=== PATIENT | female | born 1985 | race Caucasian/White ===

== ENCOUNTER 2019-05-09 11:01 | Emergency (ER) | payer BC ==
[~2019-05-09] VITALS: Ht 177.8 cm; Wt 59.1 kg
[~2019-05-09 11:01] MED LIST: ALEVE 220MG220 MG PO; BUSPAR DIVIDOSE15 MG; DEPAKOTE ER 50500 MG; DESYREL 100MG100 MG; INDERAL 10MG10 MG; INDERAL 10MG10 MG PO; KLONOPIN 0.5MG0.5 MG PO; KLONOPIN WAFE0.25 MG PO; LATUDA60 MG PO; PROAIR HFA0.09 MG/AC; REGLAN 10MG10 MG/TAB; VISTARIL50 MG; WELLBUTRIN SR150 M1; ZOFRAN 4MG T4 MG/TAB PO
[2019-05-09 11:09] VITALS: TEMP 98.8
[2019-05-09 12:16] LABS: COLLECTION METHOD CLEAN CATCH
[2019-05-09 12:21] LABS: BASO # 0.1 (0.0-0.2); BASO % 1.3 % (0.0-2.0); EOS # 0.2 (0.0-0.7); GRAN # 2.9 (1.4-6.5); GRAN % 63.6 % (42.2-75.2); HEMATOCRIT 38.8 % (37.0-47.0); HEMOGLOBIN 12.7 g/dl (12.5-16.0); LYMPH # 1.1 (1.2-3.4); LYMPH % 23.8 % (20.0-51.0); MEAN CELL VOLUME 91 fl (80.0-100.0); MEAN CORPUSCULAR HEMOGLOBIN 30 pg (27.0-31.0); MEAN CORPUSCULAR HGB CONC 33 g/dl (33.0-37.0); MEAN PLATELET VOLUME 10.8 fl (7.4-10.4); MONO # 0.3 (0.1-0.6); MONO % 7.1 % (1.7-9.3); PLATELET COUNT 206 K/mm3 (130-400); RED BLOOD COUNT 4.26 M/mm3 (4.10-5.30); REDCELL DISTRIBUTION WIDTH-CV 12.6 % (11.5-14.5)
[2019-05-09 12:30] LABS: MUCOUS Present /lpf; PH 5 (5-8); SQUAMOUS EPITHELIAL 0-2 /hpf; URINE APPEARANCE Clear; URINE BACTERIA Rare /hpf; URINE BILIRUBIN Negative (NEGATIVE); URINE BLOOD 1+ (NEGATIVE); URINE COLOR Amber; URINE GLUCOSE Negative (NEGATIVE); URINE KETONE Negative (NEGATIVE); URINE LEUKOCYTE ESTERASE Negative (NEGATIVE); URINE NITRATE Positive (NEGATIVE); URINE PROTEIN(semi-quant) Negative (NEGATIVE); URINE RBC 0-2 /hpf; URINE UROBILINOGEN >=4.0 mg/dL (NEGATIVE)
[2019-05-09 12:33] LABS: ALBUMIN 4.2 gm/dL (3.5-5.0); BILIRUBIN,TOTAL 0.7 mg/dL (0.0-1.0); CALCIUM 9.1 mg/dL (8.4-10.2); CREATININE, serum 0.87 (0.52-1.25); POTASSIUM 4.2 mmol/L (3.4-5.0); TOTAL PROTEIN 7.5 gm/dL (6.4-8.2)
[2019-05-09] MEDS ORDERED: FLEXERIL 1010 MG/TAB PO (14:02)
[2019-05-09 14:35] VITALS: BP 95/62; PULSE 46
== END 2019-05-09 14:35 | disposition home or self-care (01) ==
LOC: COL.ER 11:01
PROVIDERS: Physician Assistant
DX: S70.01XA Contusion of right hip, initial encounter (principal); N39.0 Urinary tract infection, site not specified; F31.9 Bipolar disorder, unspecified; F41.9 Anxiety disorder, unspecified; Z90.710 Acquired absence of both cervix and uterus; W55.12XA Struck by horse, initial encounter
CPT/HCPCS: J1885; J2405; J7030; Q9967

== ENCOUNTER → 2019-11-19 | Outpatient (CLI) | payer OTHER ==
[~2019-11-19] MED LIST changes: +FLEXERIL 1010 MG/TAB PO
== END ==
LOC: COL.RAD 13:30
DX: R10.2 Pelvic and perineal pain (principal); Z90.710 Acquired absence of both cervix and uterus; Z90.721 Acquired absence of ovaries, unilateral